=== PATIENT | female | born 1995 | race African-American/Black ===

== ENCOUNTER 2018-04-14 14:30 | Inpatient (IN) | payer OTHER ==
[~2018-04-14] VITALS: Ht 154.9 cm; Wt 2.7 kg
[2018-04-29] MEDS ORDERED: PRENATAL 19 TA1 EACH PO (08:54)
== END 2018-05-01 11:31 | disposition home or self-care (01) | DRG 788 ==
LOC: LDR 04-28 08:27 → OB/GYN 04-28 08:27
PROVIDERS: ADMIT Obstetrics & Gynecology
PROC: 3E033VJ Introduction of Other Hormone into Peripheral Vein, Percutaneous Approach (ICD-10-PCS; 2018-04-28)
PROC: 4A1HXCZ Monitoring of Products of Conception, Cardiac Rate, External Approach (ICD-10-PCS; 2018-04-28)
PROC: 10D00Z1 Extraction of Products of Conception, Low, Open Approach (ICD-10-PCS; principal; 2018-04-28 17:15)
DX: O61.0 Failed medical induction of labor (principal); Z3A.38 38 weeks gestation of pregnancy; Z37.0 Single live birth